=== PATIENT | male | born 1970 | race American Indian/Alaskan Native ===

== ENCOUNTER 2016-06-16 09:31 | Emergency (ER) | payer MEDICARE ==
[2016-06-16 09:38] VITALS: BP 146/76
--- NOTE | 2016-06-16 10:37 | Emergency Department Report ---
HPI - General Chief Complaint: Extremity Injury, Lower Time Seen by Provider: 06/16/16 10:33 - HPI HPI: 45-year-old [place] male presents the emergency department with acute on chronic right great toe pain. He says it's been going on for a few weeks but the pain exacerbated about 5 days ago after the patient ate some meat and this gave him concerned that he might have developed gout, which she has no previous history of. Denies any trauma. He is able to cannulate without any difficulty. He denies any skin color change or redness or warmth to the area. Patient took a Percocet, which she uses for his chronic back pain, for his current toe pain and did not get much relief. His primary care doctor is Lamonte Lynn he has not seen her regarding his symptoms. ED Past Medical Hx - Past Medical History Previous Medical History?: No - Surgical History Past Surgical History?: No - Social History Smoking Status: Never Smoker - Medications Home Medications: Home Medications Medication Instructions Recorded Confirmed Last Taken Type Colchicine [Colcrys] 0.6 mg PO DAILY #6 tablet 06/16/16 Unknown Rx Ibuprofen [Motrin] 800 mg PO Q8HR PRN #16 tablet 06/16/16 Unknown Rx ED Review of Systems ROS: Stated complaint: PAIN RT BIG TOE Other details as noted in HPI Comment: All other systems reviewed and negative Eyes: denies: eye pain, eye discharge, vision change ENT: denies: ear pain, throat pain Respiratory: denies: cough, shortness of breath, wheezing Cardiovascular: denies: chest pain, palpitations Gastrointestinal: denies: abdominal pain, nausea, diarrhea Genitourinary: denies: urgency, dysuria Musculoskeletal: arthralgia. denies: back pain Skin: denies: rash, lesions Neurological: denies: headache, weakness, paresthesias Physical Exam - Physical Exam Vital Signs: Vital Signs 06/16/16 09:34 Temperature 97.7 F Pulse Rate 80 Respiratory 16 Rate Blood Pressure 146/76 O2 Sat by Pulse 97 Oximetry Physical Exam: GENERAL: The patient is well-developed well-nourished. Patient does not appear in any acute distress. HEENT: Normocephalic. Atraumatic. Extraocular motions are intact. Patient has moist mucous membranes. NECK: Supple. Trachea is midline. CHEST/LUNGS: Clear to auscultation. There is no respiratory distress noted. HEART/CARDIOVASCULAR: Regular. There is no tachycardia. There is no gallop rub or murmur. ABDOMEN: Abdomen is soft, nontender. SKIN: There is no rash. There is no diaphoresis. NEURO: The patient is awake, alert, and oriented. The patient is cooperative. The patient has normal speech. MUSCULOSKELETAL: Patient has tenderness to palpation along the length of the right great toe but there is otherwise no change in color, swelling or deformity. There is no limitation range of motion. There is no evidence of acute injury. ED Course Vital Signs 06/16/16 09:34 Temperature 97.7 F Pulse Rate 80 Respiratory 16 Rate Blood Pressure 146/76 O2 Sat by Pulse 97 Oximetry ED Medical Decision Making - Lab Data Result diagrams: 06/16/16 10:52 - Radiology Data Radiology results: image reviewed interpreted by me: X-ray of the right foot, including the affected right great toe, does not appear to show any fracture, dislocation or any foreign body. - Medical Decision Making Patient presents with acute on chronic right great toe pain. No erythema, deformity, swelling but the location does appear consistent with possible gout. Uric acid level was checked and it came back quite elevated at 10.1. Patient will be treated with colchicine. He has good follow-up with primary care. X- ray does not show any fracture, deformity or any acute process. No other signs of infection. Vital signs stable including being afebrile. - Differential Diagnosis gout, occult fracture, tendinitis, muscle strain Critical Care Time: No Critical care attestation.: If time is entered above; I have spent that time in minutes in the direct care of this critically ill patient, excluding procedure time. ED Disposition Clinical Impression: Pain of right great toe Gout Qualifiers: Gout site: toe Gout etiology: unspecified cause Laterality: right Chronicity: acute Qualified Code(s): M10.9 - Gout, unspecified Disposition: DISCHARGED TO HOME OR SELFCARE Is pt being admited?: No Condition: Good Instructions: Acute Gouty Arthritis (ED) Additional Instructions: Please follow-up with your primary care doctor in the next few days. Return to the emergency department with any worsening of your symptoms or any acute distress. Prescriptions: Colchicine [Colcrys] 0.6 mg PO DAILY #6 tablet Ibuprofen [Motrin] 800 mg PO Q8HR PRN #16 tablet PRN Reason: Pain Referrals: LAMONTE LYNN DR [Other] - 3-5 Days Time of Disposition: 11:47
[2016-06-16 11:01] LABS: Basophils % (Auto) 0.8 % (0.0-1.8); Eosinophils % (Auto) 4.4 % (0.0-4.3); Hematocrit 41.5 % (35.5-45.6); Hemoglobin 13.6 gm/dl (11.8-15.2); Mean Corpuscular HGB Conc 33 % (32-34); Mean Corpuscular Hemoglobin 28 pg (28-32); Mean Corpuscular Volume 87 fl (84-94); Platelet Count 242 K/mm3 (140-440); Red Blood Count 4.78 M/mm3 (3.65-5.03); Red Cell Distribution Width 14.5 % (13.2-15.2); White Blood Count 6.7 K/mm3 (4.5-11.0)
--- NOTE | 2016-06-17 11:19 | XRay Report ---
RIGHT FOOT, 3 VIEWS History: Right foot pain. Findings: There appears to be mild soft tissue swelling medial foot. No fracture, bony destruction or bone lesion is identified. Early osteoarthritic changes at the first metatarsophalangeal joint and midfoot are noted. Small plantar spur. Impression: Nonspecific soft tissue swelling. Mild osteoarthritic changes. Small plantar spur.
== END 2016-06-16 12:00 | disposition home or self-care (01) ==
LOC: ED 09:31
DX: M10.9 Gout, unspecified (principal); M79.674 Pain in right toe(s)
CPT/HCPCS: 36415; 84550; 85025; 99283